=== PATIENT | female | born 1995 | race Caucasian/White ===

== ENCOUNTER 2019-01-08 22:56 | Inpatient (IN) | payer MEDICAID, OTHER ==
[2019-01-09 01:29] LABS: ADD MAN DIFF? NO
[2019-01-09] MEDS: KETOROLAC 60 MG INJ IM (01:30)
[2019-01-09 01:31] LABS: BASOPHILS % 0.7 % (0.0-2.0); EOSINOPHILS # 0.1 10^3/ul (0.0-0.5); EOSINOPHILS % 1.3 % (0.0-7.0); HEMATOCRIT 39.8 % (37.0-47.0); HEMOGLOBIN 13.7 g/dl (12.0-16.0); LYMPHOCYTES # 2.6 10^3/ul (0.8-2.9); LYMPHOCYTES % 43.1 % (15.0-51.0); MEAN CORPUSCULAR HEMOGLOBIN 30.2 pg (29.0-33.0); MEAN CORPUSCULAR HGB CONC 34.4 g/dl (32.0-37.0); MEAN CORPUSCULAR VOLUME 87.7 fl (82.0-101.0); MEAN PLATELET VOLUME 9.9 fl (7.4-10.4); MONOCYTE # 0.5 10^3/ul (0.3-0.9); MONOCYTES % 7.7 % (0.0-11.0); NEUTROPHIL # 2.8 10^3/ul (1.6-7.5); PLATELET COUNT 349 10^3/UL (140-415); RED BLOOD COUNT 4.54 10^6/ul (4.20-5.40); RED CELL DISTRIBUTION WIDTH 12.2 % (11.5-14.5)
[2019-01-09 01:31] LABS: WHITE BLOOD COUNT 5.9 10^3/ul (4.8-10.8)
[2019-01-09 01:40] LABS: ADD UMIC NO; UR ASCORBIC ACID NEGATIVE (NEGATIVE); UR BILIRUBIN (Dip) NEGATIVE (NEGATIVE); UR BLOOD (Dip) NEGATIVE (NEGATIVE); UR CLARITY CLEAR (CLEAR); UR COLOR STRAW (YELLOW); UR GLUCOSE (Dip) NEGATIVE (NEGATIVE); UR KETONES (Dip) NEGATIVE (NEGATIVE); UR LEUKOCYTE ESTERASE (Dip) NEGATIVE Leu/ul (NEGATIVE); UR NITRITE (Dip) NEGATIVE (NEGATIVE); UR SPECIFIC GRAVITY (Dip) 1.006 (1.003-1.030); UR TOTAL PROTEIN (Dip) NEGATIVE (NEGATIVE); UR UROBILINOGEN (Dip) NEGATIVE (NEGATIVE)
[2019-01-09 01:48] LABS: ALANINE AMINOTRANSFERASE 36 IU/L (13-69); ALBUMIN 4.7 g/dl (3.3-4.9); ALKALINE PHOSPHATASE 69 IU/L (42-121); ANION GAP 10 (5-13); ASPARTATE AMINO TRANSFERASE 24 IU/L (15-46); BILIRUBIN,INDIRECT 0.5 mg/dl (0-1.1); BILIRUBIN,TOTAL 0.5 mg/dl (0.2-1.3); BLOOD UREA NITROGEN 6 mg/dl (7-20); CALCIUM 9.9 mg/dl (8.4-10.2); CARBON DIOXIDE 30 mmol/L (21-31); CHLORIDE 103 mmol/L (97-110); CREATININE 0.66 mg/dl (0.44-1.00); Estimated GFR > 60 mL/min (>60); GLUCOSE 115 mg/dl (70-220); LIPASE 73 U/L (23-300); POTASSIUM 4.1 mmol/L (3.5-5.1); SODIUM 143 mmol/L (135-144); TOTAL PROTEIN 8.6 g/dl (6.1-8.1)
[2019-01-09] MEDS: HYDROmorphONE 0.5 MG/0.5 ML SYG IV (03:31)
[2019-01-09] MEDS: SOD CHLORIDE 0.9% 1,000 ML IV (03:32)
[2019-01-09] MEDS: PIPER-TAZO 3.375 GM IV (PMX) 100 ML IVPB ×4 (03:32→17:41)
[2019-01-09] MEDS ORDERED: ACETAMINOPHEN 650 MG SUPP PR (04:30)
[2019-01-09] MEDS ORDERED: NACL 0.9% 3 ML SYG IV (04:30)
[2019-01-09] MEDS ORDERED: ALBUTEROL/IPRATROPIUM (NEB) 3 ML AMP HHN (04:30)
[2019-01-09] MEDS: DEXTROSE 5%-0.45% NACL 1,000 ML IV ×3 (05:34→21:06)
[2019-01-09] MEDS: FAMOTIDINE 20 MG INJ IV ×2 (09:42→21:29)
[2019-01-09] MEDS: KETOROLAC 30 MG INJ IV ×3 (09:42→22:07)
[2019-01-10] MEDS: PIPER-TAZO 3.375 GM IV (PMX) 100 ML IVPB ×5 (00:09→21:45)
[2019-01-10] MEDS: DEXTROSE 5%-0.45% NACL 1,000 ML IV ×4 (03:17→21:45)
[2019-01-10 05:05] LABS: ADD MAN DIFF? NO
[2019-01-10 05:08] LABS: WHITE BLOOD COUNT 4.7 10^3/ul (4.8-10.8)
[2019-01-10 05:08] LABS: BASOPHIL # 0.1 10^3/ul (0.0-0.1); BASOPHILS % 1.1 % (0.0-2.0); EOSINOPHILS # 0.1 10^3/ul (0.0-0.5); EOSINOPHILS % 2.8 % (0.0-7.0); HEMATOCRIT 34.9 % (37.0-47.0); HEMOGLOBIN 11.7 g/dl (12.0-16.0); LYMPHOCYTES # 2.4 10^3/ul (0.8-2.9); LYMPHOCYTES % 51.8 % (15.0-51.0); MEAN CORPUSCULAR HGB CONC 33.5 g/dl (32.0-37.0); MEAN CORPUSCULAR VOLUME 89.5 fl (82.0-101.0); MEAN PLATELET VOLUME 10.1 fl (7.4-10.4); MONOCYTE # 0.4 10^3/ul (0.3-0.9); MONOCYTES % 8.7 % (0.0-11.0); NEUTROPHIL # 1.7 10^3/ul (1.6-7.5); NEUTROPHILS % 35.4 % (39.0-77.0); PLATELET COUNT 285 10^3/UL (140-415); RED CELL DISTRIBUTION WIDTH 12.7 % (11.5-14.5)
[2019-01-10 05:45] LABS: ALANINE AMINOTRANSFERASE 29 IU/L (13-69); ALBUMIN 3.7 g/dl (3.3-4.9); ALBUMIN/GLOBULIN RATIO 1.42; ALKALINE PHOSPHATASE 46 IU/L (42-121); ANION GAP 6 (5-13); ASPARTATE AMINO TRANSFERASE 23 IU/L (15-46); BILIRUBIN,INDIRECT 0.7 mg/dl (0-1.1); BILIRUBIN,TOTAL 0.7 mg/dl (0.2-1.3); BLOOD UREA NITROGEN 4 mg/dl (7-20); CALCIUM 8.8 mg/dl (8.4-10.2); CARBON DIOXIDE 27 mmol/L (21-31); CHLORIDE 107 mmol/L (97-110); CREATININE 0.65 mg/dl (0.44-1.00); Estimated GFR > 60 mL/min (>60); GLUCOSE 125 mg/dl (70-220); MAGNESIUM 1.9 mg/dl (1.7-2.5); PHOSPHORUS 3.6 mg/dl (2.5-4.9); POTASSIUM 3.7 mmol/L (3.5-5.1); SODIUM 140 mmol/L (135-144); TOTAL PROTEIN 6.3 g/dl (6.1-8.1)
[2019-01-10] MEDS ORDERED: DESFLURANE 15 MIN (07:00)
[2019-01-10] MEDS: FAMOTIDINE 20 MG INJ IV ×2 (08:45→20:41)
[2019-01-10] MEDS: KETOROLAC 30 MG INJ IV ×3 (08:46→21:45)
[2019-01-10] MEDS: ONDANSETRON 4 MG INJ IV (08:46)
[2019-01-10 10:00] LABS: CHOLESTEROL 112 mg/dl (100-200)
[2019-01-10 10:00] LABS: CHOL/HDL RATIO 4.4 RATIO; HDL CHOLESTEROL 25 mg/dl (33-83); LDL CHOLESTEROL,CALCULATED 70 mg/dl; TRIGLYCERIDES 85 mg/dl (0-149)
[2019-01-10 10:06] LABS: HEMOGLOBIN A1C 5.4 % (0-5.9)
[2019-01-10] MEDS: IOHEXOL 300MG/ML 150 ML BTL (13:50)
[2019-01-10] MEDS: SOD CHLORIDE 0.9% 100 ML (13:50)
[2019-01-10] MEDS ORDERED: PROPOFOL 20 ML (16:19)
[2019-01-10] MEDS ORDERED: ROCURONIUM 50 MG INJ ×2 (16:19→17:39)
[2019-01-10] MEDS ORDERED: CEFAZOLIN 1 GM INJ (16:19)
[2019-01-10] MEDS ORDERED: NEOSTIGMINE 3 MG/3 ML SYRINGE (16:19)
[2019-01-10] MEDS ORDERED: GLYCOPYRROLATE 0.4 MG INJ (16:19)
[2019-01-10] MEDS ORDERED: ONDANSETRON 4 MG INJ (16:23)
[2019-01-10] MEDS ORDERED: MIDAZOLAM 1 MG/ML 2 ML INJ (16:23)
[2019-01-10] MEDS ORDERED: DEXAMETHASONE 4 MG/ML 5 ML INJ (16:23)
[2019-01-10] MEDS ORDERED: FENTAnyl 50 MCG/ML VIAL ×2 (16:23→16:52)
[2019-01-10] MEDS ORDERED: ROPIVACAINE 0.5 % 30 ML VIAL (16:24)
[2019-01-10] MEDS: BUPIVACAINE 0.25%/EPI (SDV) 30 ML INJ (16:24)
[2019-01-10] MEDS ORDERED: MEPERIDINE 25 MG INJ IV (16:30)
[2019-01-10] MEDS ORDERED: ONDANSETRON 4 MG INJ IV ×2 (16:30→18:30)
[2019-01-10] MEDS ORDERED: EPHEDrine 25 MG/5 ML SYG IV (16:30)
[2019-01-10] MEDS ORDERED: IPRATROPIUM (NEB) 0.5 MG/2.5 ML AMP HHN (16:30)
[2019-01-10] MEDS ORDERED: DIPHENHYDRAMINE 50 MG INJ IV ×2 (16:30→18:30)
[2019-01-10] MEDS ORDERED: hydrALAzine 20 MG INJ IV (16:30)
[2019-01-10] MEDS ORDERED: FENTAnyl 50 MCG/ML VIAL IV ×2 (16:30)
[2019-01-10] MEDS ORDERED: OXYCODONE/ACETAMINOPHEN (5/325) TAB PO ×2 (16:30)
[2019-01-10] MEDS ORDERED: HYDROmorphONE 1 MG/5 ML IV SYRINGE IV (16:30)
[2019-01-10] MEDS ORDERED: MIDAZOLAM 1 MG/ML 2 ML INJ IV (16:30)
[2019-01-10] MEDS ORDERED: TRIMETHOBENZAMIDE 100 MG/ML VIAL IM (16:30)
[2019-01-10] MEDS ORDERED: LABETALOL HCL 20MG INJ IV (16:30)
[2019-01-10] MEDS ORDERED: ALBUTEROL 0.083% (NEB) 2.5 MG/3 ML AMP HHN (16:30)
[2019-01-10] MEDS ORDERED: KETOROLAC 30 MG INJ (17:26)
[2019-01-10] MEDS: FENTAnyl 50 MCG/ML VIAL IV ×2 (18:05→19:36)
[2019-01-10] MEDS: HYDROmorphONE 1 MG/5 ML IV SYRINGE IV ×2 (18:28→18:43)
[2019-01-10] MEDS ORDERED: METOCLOPRAMIDE 10 MG INJ IV (18:30)
[2019-01-10] MEDS: LACTATED RINGER'S 1,000 ML IV (19:45)
[2019-01-10] MEDS: morphine 2 MG INJ IV (20:00)
[2019-01-11] MEDS: LACTATED RINGER'S 1,000 ML IV (04:04)
[2019-01-11] MEDS: PIPER-TAZO 3.375 GM IV (PMX) 100 ML IVPB ×3 (04:57→18:15)
[2019-01-11] MEDS: KETOROLAC 30 MG INJ IV ×2 (04:57→11:21)
[2019-01-11 05:03] LABS: ADD MAN DIFF? NO
[2019-01-11 05:06] LABS: BASOPHILS % 0.1 % (0.0-2.0); HEMATOCRIT 39.7 % (37.0-47.0); HEMOGLOBIN 13.6 g/dl (12.0-16.0); LYMPHOCYTES # 0.9 10^3/ul (0.8-2.9); MEAN CORPUSCULAR HEMOGLOBIN 30.4 pg (29.0-33.0); MEAN CORPUSCULAR HGB CONC 34.3 g/dl (32.0-37.0); MEAN CORPUSCULAR VOLUME 88.6 fl (82.0-101.0); MEAN PLATELET VOLUME 10.3 fl (7.4-10.4); MONOCYTE # 0.1 10^3/ul (0.3-0.9); MONOCYTES % 0.7 % (0.0-11.0); NEUTROPHILS % 89.9 % (39.0-77.0); PLATELET COUNT 314 10^3/UL (140-415); RED BLOOD COUNT 4.48 10^6/ul (4.20-5.40); RED CELL DISTRIBUTION WIDTH 12.4 % (11.5-14.5)
[2019-01-11 05:24] LABS: PHOSPHORUS 3.3 mg/dl (2.5-4.9)
[2019-01-11 05:24] LABS: MAGNESIUM 1.8 mg/dl (1.7-2.5)
[2019-01-11 05:34] LABS: ALANINE AMINOTRANSFERASE 53 IU/L (13-69); ALBUMIN 4.1 g/dl (3.3-4.9); ALBUMIN/GLOBULIN RATIO 1.32; ALKALINE PHOSPHATASE 63 IU/L (42-121); ANION GAP 8 (5-13); ASPARTATE AMINO TRANSFERASE 42 IU/L (15-46); BILIRUBIN,INDIRECT 0.6 mg/dl (0-1.1); BILIRUBIN,TOTAL 0.6 mg/dl (0.2-1.3); CALCIUM 9.4 mg/dl (8.4-10.2); CARBON DIOXIDE 27 mmol/L (21-31); CHLORIDE 104 mmol/L (97-110); CREATININE 0.51 mg/dl (0.44-1.00); Estimated GFR > 60 mL/min (>60); GLUCOSE 175 mg/dl (70-220); SODIUM 139 mmol/L (135-144); TOTAL PROTEIN 7.2 g/dl (6.1-8.1)
[2019-01-11 05:35] LABS: BLOOD UREA NITROGEN < 2 mg/dl (7-20)
[2019-01-11] MEDS: FAMOTIDINE 20 MG INJ IV ×2 (08:25→20:41)
[2019-01-11] MEDS: HYDROCODONE/APAP (5/325) TAB PO (08:27)
[2019-01-12] MEDS: PIPER-TAZO 3.375 GM IV (PMX) 100 ML IVPB ×2 (00:18→05:58)
[2019-01-12] MEDS: HYDROCODONE/APAP (5/325) TAB PO (00:58)
[2019-01-12 05:00] LABS: ADD MAN DIFF? NO
[2019-01-12 05:05] LABS: WHITE BLOOD COUNT 7.7 10^3/ul (4.8-10.8)
[2019-01-12 05:05] LABS: BASOPHILS % 0.4 % (0.0-2.0); EOSINOPHILS % 0.3 % (0.0-7.0); HEMATOCRIT 34.3 % (37.0-47.0); HEMOGLOBIN 11.8 g/dl (12.0-16.0); LYMPHOCYTES # 2.7 10^3/ul (0.8-2.9); LYMPHOCYTES % 35.7 % (15.0-51.0); MEAN CORPUSCULAR HEMOGLOBIN 30.3 pg (29.0-33.0); MEAN CORPUSCULAR HGB CONC 34.4 g/dl (32.0-37.0); MEAN CORPUSCULAR VOLUME 87.9 fl (82.0-101.0); MEAN PLATELET VOLUME 10.4 fl (7.4-10.4); MONOCYTE # 0.6 10^3/ul (0.3-0.9); MONOCYTES % 7.6 % (0.0-11.0); NEUTROPHIL # 4.3 10^3/ul (1.6-7.5); NEUTROPHILS % 55.7 % (39.0-77.0); PLATELET COUNT 286 10^3/UL (140-415); RED CELL DISTRIBUTION WIDTH 12.9 % (11.5-14.5)
[2019-01-12 05:22] LABS: PHOSPHORUS 3.7 mg/dl (2.5-4.9)
[2019-01-12 05:22] LABS: MAGNESIUM 1.9 mg/dl (1.7-2.5)
[2019-01-12 05:25] LABS: ALANINE AMINOTRANSFERASE 71 IU/L (13-69); ALBUMIN 3.6 g/dl (3.3-4.9); ALBUMIN/GLOBULIN RATIO 1.33; ALKALINE PHOSPHATASE 55 IU/L (42-121); ANION GAP 7 (5-13); ASPARTATE AMINO TRANSFERASE 45 IU/L (15-46); BILIRUBIN,INDIRECT 0.5 mg/dl (0-1.1); BILIRUBIN,TOTAL 0.5 mg/dl (0.2-1.3); BLOOD UREA NITROGEN 5 mg/dl (7-20); CALCIUM 9.1 mg/dl (8.4-10.2); CARBON DIOXIDE 27 mmol/L (21-31); CHLORIDE 107 mmol/L (97-110); CREATININE 0.61 mg/dl (0.44-1.00); Estimated GFR > 60 mL/min (>60); GLUCOSE 97 mg/dl (70-220); POTASSIUM 3.5 mmol/L (3.5-5.1); SODIUM 141 mmol/L (135-144); TOTAL PROTEIN 6.3 g/dl (6.1-8.1)
[2019-01-12] MEDS: FAMOTIDINE 20 MG INJ IV (09:02)
== END 2019-01-12 11:10 | disposition home or self-care (01) | DRG 419 ==
LOC: FTE 22:56 → MS1 01-09 03:10
PROC: 0FT44ZZ Resection of Gallbladder, Percutaneous Endoscopic Approach (ICD-10-PCS; principal; 2019-01-10 16:24)
DX: K80.60 Calculus of gallbladder and bile duct with cholecystitis, unspecified, without obstruction (principal); E66.01 Morbid (severe) obesity due to excess calories; Z68.31 Body mass index [BMI] 31.0-31.9, adult
CPT/HCPCS: 74160; 76705; 80053; 80061; 81003; 81025; 83036; 83690; 83735; 84100; 85025; 88304